=== PATIENT | female | born 1955 | race Caucasian/White ===

== ENCOUNTER 2016-06-24 14:41 | Emergency (ER) | payer BC ==
[2016-06-24] MEDS ORDERED: DILAUDID 1 MG/ML AMP ONE (19:15)
[2016-06-24] MEDS ORDERED: cloNIDine 0.1 MG TAB ONE (19:15)
== END 2016-06-24 22:43 | disposition home or self-care (01) ==
LOC: ER 14:41
DX: I10 Essential (primary) hypertension (principal)
CPT/HCPCS: 36415; 71010; 80053; 82550; 82553; 84484; 85025; 85610; 85730; 93005; 96374; 96375